=== PATIENT | female | born 1965 | race Asian ===

== ENCOUNTER 2017-07-05 11:06 | Outpatient (CLI) | payer OTHER ==
--- NOTE | 2017-07-06 17:13 | Mammography Report ---
DIGITAL SCREENING MAMMOGRAM: 07/05/2017 CLINICAL INDICATION: A 52-year-old for screening. COMPARISON: 11/2015, 04/2011. TECHNIQUE: Routine CC and MLO projections were obtained of the breasts. FINDINGS: Parenchymal tissue within both breasts is heterogeneously dense, which may lower the sensitivity of mammography; however, there are no dominant masses, suspicious microcalcifications, or secondary signs of malignancy. In comparison to the previous studies, there are no significant changes. ASSESSMENT: NO MAMMOGRAPHIC EVIDENCE OF MALIGNANCY. NO SIGNIFICANT INTERVAL CHANGES. RECOMMENDATION: Screening mammography is recommended annually. BIRADS category 1 - negative. STANDARD QUALIFYING STATEMENTS: 1. This examination was reviewed with the aid of Computed-Aided Detection (CAD). 2. A negative or benign imaging report should not delay biopsy if clinically suspicious findings are present. Consider surgical consultation if warranted. More than 5% of cancers are not identified by imaging. 3. Dense breasts may obscure an underlying neoplasm. TD: 07/06/2017 15:13
== END 2017-07-05 11:07 | disposition home or self-care (01) ==
LOC: DI 11:06
PROVIDERS: ATTEND Hospitalist
DX: Z12.31 Encounter for screening mammogram for malignant neoplasm of breast (principal)
CPT/HCPCS: 77067

== ENCOUNTER 2020-09-08 09:55 | Outpatient (CLI) | payer OTHER ==
--- NOTE | 2020-09-09 13:45 | Mammography Report ---
BILATERAL DIGITAL DIAGNOSTIC MAMMOGRAM 3D/2D: 09/08/2020 CLINICAL: Breast cysts for bilateral breasts. Comparison is made to exam dated: 07/05/2017 mammogram - [facility]. The tissue of both breasts is heterogeneously dense. This may lower the sensitivity of mammography. There is a oval asymmetry in the right breast middle depth central to the nipple seen on the cranioca udal view only. This is not seen in additional views. No other significant masses, calcifications, or other findings are seen in either breast. IMPRESSION: NEGATIVE There is no mammographic evidence of malignancy. A 1 year screening mammogram is recommended. Exam findings were conveyed to the patient. This exam was interpreted at Station ID: [id number]. NOTE: For mammograms, a report in lay terms will be sent to the patient. Approximately 15% of breast malignancies will not be visualized mammographically. In the management of a palpable breast mass, a negative mammogram must not discourage biopsy of a clinically suspicious lesion. Electronically Signed By: Johnnie Guajardo M.D. slc/:09/08/2020 11:42:16 ACR BI-RADS Category 1: Negative 3341F PARENCHYMAL PATTERN: (D) - The breast(s) demonstrate(s) heterogeneously dense fibroglandular obi sanderson. BI-RADS CATEGORY: (1) - 1 RECOMMENDATION: (ANNUAL) - Recommend routine annual screening mammography. [id number] 1 year screening LATERALITY: (B)
== END 2020-09-08 09:56 | disposition home or self-care (01) ==
LOC: DI 09:55
PROVIDERS: ATTEND Nurse Practitioner Family
DX: N60.12 Diffuse cystic mastopathy of left breast (principal); N60.11 Diffuse cystic mastopathy of right breast

== ENCOUNTER 2021-06-16 10:50 | Emergency (ER) | payer OTHER ==
[2021-06-16 11:29] LABS: ALBUMIN 4.8 g/dL (3.2-5.5); ALBUMIN/GLOBULIN RATIO 1.5 (1.0-2.2); BILIRUBIN,TOTAL 0.6 mg/dL (0.2-1.0); CALCIUM 9.5 mg/dL (8.5-10.3); CREATININE 0.8 mg/dL (0.4-1.0); POTASSIUM 3.5 mmol/L (3.5-5.0)
[2021-06-16 11:39] LABS: BASOPHILS # (AUTO) 0.1 10^3/uL (0.0-0.1); EOSINOPHILS # (AUTO) 0.1 10^3/uL (0.0-0.7); HGB - HEMOGLOBIN 14.7 g/dL (12.0-16.0); LYMPHOCYTES # (AUTO) 1.8 10^3/uL (1.5-3.5); LYMPHOCYTES % (AUTO) 26.7 %; MEAN CORPUSCULAR HEMOGLOBIN 30.6 pg (27.0-31.0); MEAN CORPUSCULAR HGB CONC 33.4 g/dL (32.0-36.0); MEAN CORPUSCULAR VOLUME 91.5 fL (81.0-99.0); MEAN PLATELET VOLUME 10.5 fL (7.9-10.8); MONOCYTES # (AUTO) 0.5 10^3/uL (0.0-1.0); MONOCYTES % (AUTO) 6.5 %; NEUTROPHILS # (AUTO) 4.5 10^3/uL (1.5-6.6); NEUTROPHILS % (AUTO) 64.5 %; PLT - PLATELET COUNT 336 10^3/uL (130-450); RED BLOOD COUNT 4.81 10^6/uL (4.20-5.40); RED CELL DISTRIBUTION WIDTH 12.4 % (12.0-15.0); WHITE BLOOD COUNT 6.9 x10^3/uL (4.8-10.8)
--- NOTE | 2021-06-16 11:48 | ED Physician Documentation ---
PD HPI ABD PAIN - Stated complaint Stated Complaint: RT ABD PX - Chief complaint Chief Complaint: Abd Pain - History obtained from History obtained from: Patient - History of Present Illness Timing - onset: How many months ago (2) Timing - duration: Months (2) Timing - details: Gradual onset, Still present (increased the past week), Waxing and waning Quality: Cramping, Aching, Pain Location: RLQ, Suprapubic Radiation: Right flank Improved by: BM, Other (urination improves cramping.). No: Eating Worsened by: No: Eating Associated symptoms: Other (urinary incontinence with activity, position, laugh ing, etc. No dysuria. Denies anesthesia in perineal area.). No: Fever, Nausea, Vomiting, Diarrhea, Constipation, Dysuria, Loss of appetite Similar symptoms before: No diagnosis (has had intestinal loose stools with certain foods, perticularly breads/cereals. Has had colonoscpy years ago with repeat as recent as 2 years ago. No Crohns/IBD per patient. Also Dx with ovarian cysts 2 years ago without follow up due to COVID.) Recently seen: Not recently seen Review of Systems Constitutional: reports: Other (right inguinal and axillary mildly tender nodes the past 1-2 weeks.). denies: Fever, Chills Nose: denies: Rhinorrhea / runny nose, Congestion Throat: denies: Sore throat Respiratory: denies: Cough GI: reports: Abdominal Pain, Nausea, Diarrhea (chronic loose stools and food intolerance (mainly glutens), Dx with Baxter Syndrome per patient.). denies: Vomiting : reports: Incontinent (of urine with activity.). 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 - Present Medications Home Medications: Ambulatory Orders Medication Instructions Recorded Confirmed Dicyclomine [Bentyl] 10 mg PO TID PRN #20 cap 06/16/21 Meloxicam [Mobic] 7.5 mg PO BID 10 Days #20 tablet 06/16/21 - Allergies Allergies/Adverse Reactions: Allergies Allergy/AdvReac Type Severity Reaction Status Date / Time codeine Allergy Anaphylaxis Verified 06/16/21 11:00 Sulfa (Sulfonamide Allergy Anaphylaxis Verified 06/16/21 11:00 Antibiotics) sumatriptan Allergy Anaphylaxis Verified 06/16/21 11:00 PD ED PE NORMAL - Vitals Vital signs reviewed: Yes - General General: Alert and oriented X 3, No acute distress, Well developed/nourished - HEENT HEENT: Pharynx benign - Neck Neck: Supple, no meningeal sign, Other (right axillary adenopathy without skin lesion nor redness. ) - Cardiac Cardiac: RRR, No murmur - Respiratory Respiratory: Clear bilaterally - Abdomen Abdomen: Normal bowel sounds, Soft, Non distended, No organomegaly, Other (right inguinal mild adenopathy. RLQ area of abd tender without guarding. ) - Back Back: No CVA TTP - Derm Derm: Normal color, Warm and dry - Neuro Neuro: Alert and oriented X 3, No motor deficit, Normal speech Results - Vitals Vitals: Vital Signs - 24 hr 06/16/21 06/16/21 11:00 13:33 Temperature 37.0 C Heart Rate 80 70 Respiratory 18 16 Rate Blood Pressure 138/100 H 154/97 H O2 Saturation 99 99 Oxygen O2 Source Room air - Labs Labs: Laboratory Tests 06/16/21 06/16/21 06/16/21 11:06 11:11 11:11 WBC 6.9 RBC 4.81 Hgb 14.7 Hct 44.0 MCV 91.5 MCH 30.6 MCHC 33.4 RDW 12.4 Plt Count 336 MPV 10.5 Neut # (Auto) 4.5 Lymph # (Auto) 1.8 [place] # (Auto) 0.5 Eos # (Auto) 0.1 Baso # (Auto) 0.1 Absolute Nucleated RBC 0.00 Nucleated RBC % 0.0 ESR Sodium 138 Potassium 3.5 Chloride 102 Carbon Dioxide 25 Anion Gap 11.0 BUN 12 Creatinine 0.8 Estimated GFR (MDRD) 75 L Glucose 118 H Calcium 9.5 Total Bilirubin 0.6 AST 33 ALT 47 Alkaline Phosphatase 72 Total Protein 8.0 Albumin 4.8 Globulin 3.2 Albumin/Globulin Ratio 1.5 Lipase 60 H Urine Color YELLOW Urine Clarity CLEAR Urine pH 6.5 Ur Specific [place] 1.015 Urine Protein NEGATIVE Urine Glucose (UA) NEGATIVE Urine Ketones NEGATIVE Urine Occult Blood SMALL H Urine Nitrite NEGATIVE Urine Bilirubin NEGATIVE Urine Urobilinogen 0.2 (NORMAL) Ur Leukocyte Esterase NEGATIVE Urine RBC 0-5 Urine WBC 0-3 Ur Squamous Epith Cells RARE Squamous Urine Bacteria Few Ur Microscopic Review INDICATED Urine Culture Comments NOT INDICATED Urine HCG, Qual NEGATIVE 06/16/21 11:11 WBC RBC Hgb Hct MCV MCH MCHC RDW Plt Count MPV Neut # (Auto) Lymph # (Auto) [place] # (Auto) Eos # (Auto) Baso # (Auto) Absolute Nucleated RBC Nucleated RBC % ESR 3 Sodium Potassium Chloride Carbon Dioxide Anion Gap BUN Creatinine Estimated GFR (MDRD) Glucose Calcium Total Bilirubin AST ALT Alkaline Phosphatase Total Protein Albumin Globulin Albumin/Globulin Ratio Lipase Urine Color Urine Clarity Urine pH Ur Specific [place] Urine Protein Urine Glucose (UA) Urine Ketones Urine Occult Blood Urine Nitrite Urine Bilirubin Urine Urobilinogen Ur Leukocyte Esterase Urine RBC Urine WBC Ur Squamous Epith Cells Urine Bacteria Ur Microscopic Review Urine Culture Comments Urine HCG, Qual - Rads (name of study) abd/pelvis CT Radiology: Prelim report reviewed (no acute abnormality. Normal apendix. 3 mm renal stones. no obstructing stones. ), See rad report Departure - Departure Disposition: 01 Home, Self Care Clinical Impression: Right sided abdominal pain Condition: Stable Record reviewed to determine appropriate education?: Yes Instructions: ED Abdominal Pain Female Non-Specific Abdominal Pain Follow-Up: Gopal Macedo MD [Primary Care Provider] - Prescriptions: Dicyclomine [Bentyl] 10 mg PO TID PRN #20 cap PRN Reason: Abdominal Pain Meloxicam [Mobic] 7.5 mg PO BID 10 Days #20 tablet Comments: Continue with your normal food and fluid intake. Also continue with some fiber daily. We can try a different anti-inflammatory and see if that helps for your abdominal pain. Continue with adding Tylenol every 4-6 hours if needed for pain. We can also try dicyclomine intestinal antispasmodic and see if that helps her your pains when its worse. At this point is not clear the cause of your pains. Your CT scan did not show any acute abnormalities. I gave you a copy of the report. In particular no signs of obvious infections, tumors or cancers, unusual lymph nodes, ovarian cysts or localized intestinal inflammation. Your urine test is good as well. Consideration would be some intestinal inflammation (colitis) given your chronic loose stools. We can try an anti-inflammatory for that and antispasmodic as noted above. Follow-up with your primary care if not improved well over the next several days to week. I transmitted your prescriptions to [facility] in [place]. Discharge Date/Time: 06/16/21 14:06
[2021-06-16] MEDS: KETOROLAC 30 MG/ML VIAL IVP STA (12:09)
[2021-06-16] MEDS ORDERED: IOVERSOL 320 50 ML VIAL ONE (12:21)
--- NOTE | 2021-06-16 13:01 | CT Report ---
PROCEDURE: Abdomen/Pelvis W INDICATIONS: right abd pain for weeks CONTRAST: IV CONTRAST: Optiray 320 ml: 100 PO CONTRAST: *NO PO CONTRAST TECHNIQUE: After the administration of weight appropriate dose of intravenous contrast, 5 mm thick sections acqu ired from the diaphragms to the symphysis. 5 mm thick coronal and sagittal reformats were acquired. For radiation dose reduction, the following was used: automated exposure control, adjustment of mA and/or kV according to patient size. COMPARISON: None. FINDINGS: Image quality: Excellent. ABDOMEN: Lung bases: Lung bases are clear. Heart size is normal. Solid organs: Liver and spleen are normal in size and enhancement. Diffuse hepatic steatosis. Gallb ladder is surgically absent. Biliary system is non dilated. Pancreas enhances normally. No adrenal nodules. Kidneys demonstrate normal size and enhancement, without hydronephrosis. There are small b ilateral punctate nonobstructing renal stones. They measure up to 3 mm bilaterally. Peritoneum and bowel: Bowel loops demonstrate normal wall thickness and caliber. No free fluid or a ir. Normal appendix. Nodes and vessels: No retroperitoneal or mesenteric adenopathy by size criteria. Aorta and inferior vena cava are normal in size. Miscellaneous: Small fat-containing umbilical hernia without acute inflammation. PELVIS: Genitourinary: Bladder wall thickness is normal. Miscellaneous: No inguinal hernias or adenopathy. Bones: No suspicious bony lesions. No acute vertebral body compression fractures. IMPRESSION: CT abdomen and pelvis without acute abnormalities. Bilateral 3 mm nonobstructing nephroliths. No hydronephrosis or hydroureter. Normal appendix. Reviewed by: Ned Sosa MD on 06/16/2021 12:59 PM PDT Approved by: Ned Sosa MD on 06/16/2021 12:59 PM PDT Station ID: [id number]
[2021-06-16 13:34] VITALS: BP 154/97
[2021-06-16 13:34] LABS: BILIRUBIN,URINE NEGATIVE (NEGATIVE); GLUCOSE, URINE (UA) NEGATIVE (NEGATIVE); KETONES,URINE (UA) NEGATIVE (NEGATIVE); LEUKOCYTE ESTERASE, URINE NEGATIVE (NEGATIVE); NITRITE,URINE NEGATIVE (NEGATIVE); OCCULT BLOOD,URINE SMALL (NEGATIVE); PH,URINE 6.5 PH (5.0-7.5); PROTEIN,URINE NEGATIVE (NEGATIVE); UROBILINOGEN,URINE 0.2 (NORMAL) E.U./dL (NORMAL)
[2021-06-16 13:35] LABS: CLARITY,URINE CLEAR (CLEAR)
[2021-06-16 13:37] LABS: HCG UR QUAL NEGATIVE
[2021-06-16] MEDS: DICYCLOMINE 10 MG CAPSULE PO STA (13:48)
[2021-06-16 13:51] LABS: BACTERIA,URINE Few /HPF (None Seen); RBC,URINE 0-5 /HPF (0-5); SQUAMOUS EPITHELIAL CELL,UR RARE Squamous (<= Few); WBC,URINE 0-3 /HPF (0-5)
[2021-06-16] MEDS: IOVERSOL 320 50 ML VIAL IVP ONE (13:56)
== END 2021-06-16 14:06 | disposition home or self-care (01) ==
LOC: ED 10:50
DX: R10.31 Right lower quadrant pain (principal)
CPT/HCPCS: 36415; 74177; 80053; 81001; 81025; 83690; 85025; 85651; 96374; 99282; 99284; A9270; 81003; 87086